=== PATIENT | male | born 1995 | race Two or more races ===

== ENCOUNTER 2019-02-25 15:16 | Emergency (ER) | payer SELFPAY ==
[~2019-02-25] VITALS: Ht 167.6 cm; Wt 79.4 kg
[2019-02-25 15:43] VITALS: BP 144/96
[2019-02-25] MEDS ORDERED: IBUPROFEN 800 MG TAB PO ONE (16:00)
== END 2019-02-25 16:25 | disposition home or self-care (01) ==
LOC: ER 15:16
DX: S06.0X0A Concussion without loss of consciousness, initial encounter (principal); S00.03XA Contusion of scalp, initial encounter; W11.XXXA Fall on and from ladder, initial encounter; Y93.89 Activity, other specified; Y92.89 Other specified places as the place of occurrence of the external cause; Y99.8 Other external cause status
CPT/HCPCS: 70450